=== PATIENT | female | born 1960 | race Hispanic/Latino ===

== ENCOUNTER → 2017-07-16 | Outpatient (CLI) | payer BC ==
--- NOTE | 2017-07-16 11:12 | Diagnostic Imaging Report ---
EXAM: DXA BONE DENSITY INDICATIONS: Postmenopausal screening COMPARISON: June 17, 2016; June 01, 2015. FINDINGS: Proximal left femur bone mineral density (BMD) (g/cm2):0.805 Femur T-score (standard deviation relative to young adult mean BMD): -1.2 Femur Z-score (standard deviation relative to age-matched control group):-0.3 Lumbar bone mineral density (BMD) (g/cm2):0.924 Lumbar T-score (standard deviation relative to young adult mean BMD): -1.1 Lumbar Z-score (standard deviation relative to age-matched control group):0.2 CONCLUSION: 1. WHO bone mineral classification: Low bone mass (osteopenia). 2. 10 year major osteoporotic fracture risk is 3.6%, with a hip fracture risk is 0.1%. 3. There is a statistically significant increase in bone mineral density of the lumbar spine relative to the baseline and prior studies of 8.7 and 7.4% respectively. World Health Organization Classification: *The Z-score is provided for informational purposes. The T-score is preferable for clinical decisions. When comparing exams, a change of >4% is considered statistically significant. RECOMMENDATIONS: Normal \T\ Osteopenia:Calcium supplementation, daily multiple vitamins and adequate exercise, as preventive measures against osteoporosis. Osteoporosis \T\ Severe Osteoporosis:In addition to the above , to therapy. Dictated by: Wilbert Castro M.D. on 07/16/2017 at 11:12 Electronically approved by: Wilbert Castro M.D. on 07/16/2017 at 11:12
--- NOTE | 2017-07-25 16:32 | Diagnostic Imaging Report ---
#[id number] - MGSCRBIL #BILATERAL DIGITAL SCREENING MAMMOGRAM WITH CAD: 07/16/2017 CLINICAL: Routine screening. Comparison is made to exams dated: 06/17/2016 mammogram and 06/01/2015 mammogram - [facility]. Current study contains 4 films. The tissue of both breasts is extremely dense, which lowers the sensitivity of mammography. Current study was also evaluated with a Computer Aided Detection (CAD) system. There is a possible oval mass in the left breast at 9 o'clock posterior depth. A scar marker is noted on the left breast. Scattered benign appearing calcifications bilaterally are noted. No other significant masses, calcifications, or other findings are seen in either breast. IMPRESSION: INCOMPLETE: NEEDS ADDITIONAL IMAGING EVALUATION The possible oval mass in the left breast is indeterminate. Additional views with possible ultrasound are recommended. The patient will be contacted by the Mammography Department to schedule this appointment. Jacob Jones Jr., D.O. cw/:07/25/2017 09:23:09 Mechanical Inspector: Nazia STEINER(Sourav)(M), [facility] letter sent: Additional Imaging Needed Mammogram BI-RADS: 0 Indeterminate
== END ==
LOC: MAMMO 07:23
PROVIDERS: ATTEND Obstetrics & Gynecology
DX: Z12.31 Encounter for screening mammogram for malignant neoplasm of breast (principal); Z13.820 Encounter for screening for osteoporosis
CPT/HCPCS: 77067; 77080

== ENCOUNTER → 2017-08-08 | Outpatient (CLI) | payer BC ==
--- NOTE | 2017-08-08 16:00 | Diagnostic Imaging Report ---
#[id number] - USBRELIMLT ULTRASOUND OF THE LEFT BREAST : 08/08/2017 Comparison is made to exam dated: 08/08/2017 mammogram - [facility]. Color flow and real-time ultrasound were performed on the left breast with scanning from 6 o'clock to 12 o'clock. There are multiple anechoic lesions noted: -At 8 o'clock 4 cm from the nipple is a 3 x 1.5 x 4 mm cyst -At 9 o'clock 6 cm from the nipple is a cluster of cysts with a composite measurement of 9 x 8 x 12 mm -At 10 o'clock 5 cm from the nipple is a 1.3 x 7 x 5 mm cyst -At 10 o'clock 3 cm from the nipple is a 9 x 4 x 9 mm cyst -At 11 o'clock 2 cm from the nipple is a 6 x 5 x 6 mm cyst IMPRESSION: BENIGN Multiple cysts as described above. There is no sonographic evidence of malignancy. A 1 year screening mammogram is recommended. Jacob Jones Jr., D.O. cw/:08/08/2017 13:55:14 Box Annealer: GEOVANNA ESTRADA, [facility] letter sent: Normal Exam Ultrasound BI-RADS: 2 Benign
--- NOTE | 2017-08-08 16:00 | Diagnostic Imaging Report ---
#[id number] - MGDXLT #UNILATERAL LEFT DIGITAL DIAGNOSTIC MAMMOGRAM WITH SPOT COMPRESSION: 08/08/2017 Comparison is made to exams dated: 07/16/2017 mammogram and 06/17/2016 mammogram - [facility]. Current study contains 3 films. The tissue of the left breast is extremely dense, which lowers the sensitivity of mammography. There is an oval mass in the left breast at 9 o'clock posterior depth. No other significant masses or calcifications are seen in the breast. IMPRESSION: INCOMPLETE: NEEDS ADDITIONAL IMAGING EVALUATION The oval mass in the left breast is indeterminate. An ultrasound is recommended and will be performed today. Jacob Jones Jr., D.O. cw/:08/08/2017 13:35:05 Tobacco Buyer: Nazia STEINER(Sourav)(M), [facility] letter sent: Additional Imaging Needed Mammogram BI-RADS: 0 Indeterminate
== END ==
LOC: MAMMO 08:54
PROVIDERS: ATTEND Obstetrics & Gynecology
DX: N63.20 Unspecified lump in the left breast, unspecified quadrant (principal)

== ENCOUNTER 2018-05-12 16:03 | Outpatient (RCR) | payer BC | END 2018-05-14 | LOC: PT 16:03 | PROVIDERS: ATTEND Podiatrist Foot & Ankle Surgery | DX: M72.2 Plantar fascial fibromatosis (principal); M54.10 Radiculopathy, site unspecified ==

== ENCOUNTER → 2018-06-11 | Outpatient (RCR) | payer BC | LOC: PT 05-19 16:57 | PROVIDERS: ATTEND Podiatrist Foot & Ankle Surgery | DX: M72.2 Plantar fascial fibromatosis (principal); M54.17 Radiculopathy, lumbosacral region; M25.571 Pain in right ankle and joints of right foot; M79.604 Pain in right leg; R26.2 Difficulty in walking, not elsewhere classified; M62.81 Muscle weakness (generalized) | CPT/HCPCS: 97139 ==

== ENCOUNTER → 2018-08-04 | Outpatient (CLI) | payer BC | LOC: MAMMO 13:23 | PROVIDERS: ATTEND Obstetrics & Gynecology | DX: Z12.31 Encounter for screening mammogram for malignant neoplasm of breast (principal) | CPT/HCPCS: 77067 ==

== ENCOUNTER → 2019-10-05 | Outpatient (CLI) | payer BC | LOC: MAMMO 14:18 | PROVIDERS: ATTEND Obstetrics & Gynecology | DX: Z12.31 Encounter for screening mammogram for malignant neoplasm of breast (principal) | CPT/HCPCS: 77067 ==

== ENCOUNTER → 2019-10-27 | Outpatient (CLI) | payer BC | LOC: MAMMO 10:33 | PROVIDERS: ATTEND Obstetrics & Gynecology | DX: N63.20 Unspecified lump in the left breast, unspecified quadrant (principal); N63.10 Unspecified lump in the right breast, unspecified quadrant | CPT/HCPCS: 77066 ==

== ENCOUNTER → 2020-04-11 | Outpatient (CLI) | payer OTHER ==
[~2020-04-11] MED LIST: COVID-19 VACC, MRNA(MODERNA)/PF 100 MCG/0.5 ML VIAL IM ONE
== END ==
LOC: VACCPMC 13:27
DX: Z23 Encounter for immunization (principal); Z20.828 Contact with and (suspected) exposure to other viral communicable diseases

== ENCOUNTER 2020-05-12 15:55 | Emergency (ER) | payer BC, OTHER ==
[~2020-05-12] VITALS: Ht 157.5 cm; Wt 61.2 kg
[2020-05-12] MEDS ORDERED: KEFLEX125 MG/5 M PO (17:08)
[2020-05-12] MEDS ORDERED: BACITRACIN ZINC 0.9GM TP ONE (17:17)
== END 2020-05-12 17:35 | disposition home or self-care (01) ==
LOC: FSED 17:07
DX: S61.211A Laceration without foreign body of left index finger without damage to nail, initial encounter (principal)
CPT/HCPCS: 99283

== ENCOUNTER → 2020-05-16 | Outpatient (CLI) | payer OTHER ==
[~2020-05-16] MED LIST changes: +KEFLEX125 MG/5 M PO
== END | DRG 951 ==
LOC: VACCPMC 08:00
DX: Z23 Encounter for immunization (principal); Z20.822 Contact with and (suspected) exposure to COVID-19
CPT/HCPCS: 0012A; 91301

== ENCOUNTER → 2020-11-23 | Outpatient (CLI) | payer OTHER ==
[~2020-11-23] MED LIST changes: -COVID-19 VACC, MRNA(MODERNA)/PF 100 MCG/0.5 ML VIAL IM ONE
== END ==
LOC: MAMMO 11:29
PROVIDERS: ATTEND Obstetrics & Gynecology
DX: Z12.31 Encounter for screening mammogram for malignant neoplasm of breast (principal)
CPT/HCPCS: 77067

== ENCOUNTER → 2021-02-08 | Outpatient (CLI) | payer OTHER ==
[~2021-02-08] MED LIST changes: +COVID-19 VACC, MRNA(MODERNA)/PF 100 MCG/0.5 ML VIAL IM ONE
== END ==
LOC: VACCPMC 07:27
DX: Z23 Encounter for immunization (principal); Z20.822 Contact with and (suspected) exposure to COVID-19

== ENCOUNTER → 2022-01-16 | Outpatient (CLI) | payer BC ==
[~2022-01-16] MED LIST changes: -COVID-19 VACC, MRNA(MODERNA)/PF 100 MCG/0.5 ML VIAL IM ONE
== END ==
LOC: MAMMO 14:09
PROVIDERS: ATTEND Obstetrics & Gynecology
DX: Z12.31 Encounter for screening mammogram for malignant neoplasm of breast (principal)
CPT/HCPCS: 77067

== ENCOUNTER → 2022-01-18 | Outpatient (CLI) | payer BC | LOC: DX 12:07 | PROVIDERS: ATTEND Obstetrics & Gynecology | DX: M85.88 Other specified disorders of bone density and structure, other site (principal) | CPT/HCPCS: 77080 ==

== ENCOUNTER → 2022-01-24 | Outpatient (CLI) | payer BC | LOC: US 08:36 | PROVIDERS: ATTEND Obstetrics & Gynecology | DX: N63.20 Unspecified lump in the left breast, unspecified quadrant (principal); N63.10 Unspecified lump in the right breast, unspecified quadrant ==

== ENCOUNTER → 2022-06-21 | Day surgery (SDC) | payer BC ==
[2022-06-19 16:31] LABS: BASOPHILS % 0.4 % (0.0-1.0); EOSINOPHILS # (AUTO) 0.2 (0.0-0.4); EOSINOPHILS % 1.8 % (0.0-6.0); HEMATOCRIT 41.3 % (34.2-44.1); HEMOGLOBIN 13.6 g/dL (12.0-16.0); LYMPHOCYTES # (AUTO) 1.8 (1.0-3.2); LYMPHOCYTES % 19.4 % (18.0-39.1); MEAN CORPUSCULAR HEMOGLOBIN 29.8 pg (28-32); MEAN CORPUSCULAR HGB CONC 32.9 g/dL (31-35); MEAN CORPUSCULAR VOLUME 90.6 fL (81-99); MONOCYTES # (AUTO) 0.7 (0.2-0.8); MONOCYTES % 7.6 % (4.4-11.3); NEUTROPHILS # (AUTO) 6.4 (2.1-6.9); NEUTROPHILS % 70.4 % (38.7-80.0); PLATELET COUNT 223 x10e3/uL (140-360); RED BLOOD COUNT 4.56 x10e6/uL (3.6-5.1)
[2022-06-19 16:55] LABS: ALBUMIN 3.8 g/dL (3.5-5.0); ALBUMIN/GLOBULIN RATIO 1.3 (0.8-2.0); ANION GAP 14.4 mmol/L (8-16); CREATININE, SERUM 0.81 mg/dL (0.57-1.11); POTASSIUM 4.4 mmol/L (3.5-5.1)
[~2022-06-21] MED LIST changes: +ACETAMINOPHEN 1000 MG/100 ML 100 ML IV ONE; +BUPIVACAINE 0.5%/EPI 30 ML SDV INJ ONE; +DEXAMETHASONE SOD PHOS INJ 4 MG/ML SDV ONE; +EPHEDRINE SULFATE INJ 50 MG/ML VIAL ONE; +FENTANYL CITRATE/PF 100MCG/2 ML INJ ONE; +LEVOTHYROXINE50 MCG PO; +LIDOCAINE HCL 2% LOCAL INJ 5 ML SDV VIAL INJ ONE; +MIDAZOLAM HCL 2 MG/2 ML VIAL ONE; +NURTEC ODT75 MG PO; +ONDANSETRON HCL INJ 2MG/ML 2ML 2 MG/ML VIAL ONE; +POVIDONE IODINE 0.05% 0.05 % ML PO ONE; +PREMPRO 0.625-1 EACH PO; +PROPOFOL IV EMULSION 10 MG/ML 20 ML VIAL ONE
[2022-06-21 11:15] VITALS: BP 135/85
== END | disposition home or self-care (01) ==
LOC: OR 06:53
PROVIDERS: ATTEND Surgery
DX: N60.02 Solitary cyst of left breast (principal); E03.9 Hypothyroidism, unspecified; Z01.810 Encounter for preprocedural cardiovascular examination; Z01.812 Encounter for preprocedural laboratory examination; Z01.818 Encounter for other preprocedural examination; Z79.899 Other long term (current) drug therapy
CPT/HCPCS: 19301; 36415; 71046; 80053; 85025; 88307; 93005; J0131; J1100; J2001; J2250; J2405; J2704; J3010; 88304; 88305

== ENCOUNTER → 2023-01-29 | Outpatient (REF) | payer BC ==
[~2023-01-29] MED LIST changes: -ACETAMINOPHEN 1000 MG/100 ML 100 ML IV ONE; -BUPIVACAINE 0.5%/EPI 30 ML SDV INJ ONE; -DEXAMETHASONE SOD PHOS INJ 4 MG/ML SDV ONE; -EPHEDRINE SULFATE INJ 50 MG/ML VIAL ONE; -FENTANYL CITRATE/PF 100MCG/2 ML INJ ONE; -LIDOCAINE HCL 2% LOCAL INJ 5 ML SDV VIAL INJ ONE; -MIDAZOLAM HCL 2 MG/2 ML VIAL ONE; -ONDANSETRON HCL INJ 2MG/ML 2ML 2 MG/ML VIAL ONE; -POVIDONE IODINE 0.05% 0.05 % ML PO ONE; -PROPOFOL IV EMULSION 10 MG/ML 20 ML VIAL ONE
== END ==
LOC: MAMMO 14:07
PROVIDERS: ATTEND Obstetrics & Gynecology
DX: Z12.31 Encounter for screening mammogram for malignant neoplasm of breast (principal)
CPT/HCPCS: 77067

== ENCOUNTER → 2024-02-02 | Outpatient (REF) | payer OTHER | LOC: MAMMO 13:34 | PROVIDERS: ATTEND Family Medicine Adult Medicine | DX: Z12.31 Encounter for screening mammogram for malignant neoplasm of breast (principal) | CPT/HCPCS: 77067 ==

== ENCOUNTER 2024-04-21 11:33 | Emergency (ER) | payer BC, MEDICARE ==
[~2024-04-21] VITALS: Ht 157.5 cm; Wt 57.8 kg
[2024-04-21] MEDS ORDERED: BACTRIM DS TAB1 EACH PO (11:58)
[2024-04-21] MEDS ORDERED: ONDANSETRON HCL INJ 2MG/ML 2ML 2 MG/ML VIAL ONE (12:22)
[2024-04-21] MEDS: KETOROLAC TROMETHAMINE 30 MG/ML VIAL IV STA (12:30)
[2024-04-21] MEDS: ONDANSETRON HCL INJ 2MG/ML 2ML 2 MG/ML VIAL IV STA (12:47)
[2024-04-21] MEDS: AMOXICILLIN/CLAVULANATE K 875 MG TAB PO STA (13:24)
[2024-04-21] MEDS ORDERED: AUGMENTIN 500-1 EACH PO (13:25)
[2024-04-21 13:40] VITALS: PULSE 65; RESP 16; TEMP 98.4; O2SAT 97
== END 2024-04-21 13:40 | disposition home or self-care (01) ==
LOC: FSED 12:14
DX: R10.32 Left lower quadrant pain (principal); K57.32 Diverticulitis of large intestine without perforation or abscess without bleeding; K76.0 Fatty (change of) liver, not elsewhere classified; E03.9 Hypothyroidism, unspecified
CPT/HCPCS: 74176; 80048; 80076; 81003; 85025; 96374; 96375; 99284; J1885; J2405

== ENCOUNTER 2024-07-08 16:00 | Outpatient (RCR) | payer MEDICARE ==
[~2024-07-08 16:00] MED LIST changes: +AUGMENTIN 500-1 EACH PO; +BACTRIM DS TAB1 EACH PO
== END 2024-07-12 ==
LOC: PT 16:00
PROVIDERS: ATTEND Orthopaedic Surgery
DX: M70.72 Other bursitis of hip, left hip (principal); M76.02 Gluteal tendinitis, left hip

== ENCOUNTER 2024-08-10 15:00 | Outpatient (RCR) | payer MEDICARE | END 2024-08-11 | LOC: PT 15:00 | PROVIDERS: ATTEND Orthopaedic Surgery | DX: M70.72 Other bursitis of hip, left hip (principal); M76.02 Gluteal tendinitis, left hip ==